=== PATIENT | female | born 1955 | race Caucasian/White ===

== ENCOUNTER 2018-12-21 08:42 | Emergency (ER) | payer OTHER ==
[~2018-12-21] VITALS: Ht 157.5 cm; Wt 87.1 kg
[2018-12-21] MEDS ORDERED: LIPITOR20 MG (08:53)
[2018-12-21] MEDS ORDERED: SINGULAIR10 MG (08:54)
[2018-12-21] MEDS ORDERED: NORVASC5 MG (08:54)
[2018-12-21] MEDS ORDERED: PROMETRIUM200 MG (08:54)
== END 2018-12-21 10:50 | disposition home or self-care (01) ==
LOC: ER 08:42
DX: M25.561 Pain in right knee (principal)